=== PATIENT | male | born 1940 ===

== ENCOUNTER 2024-09-17 09:45 | Outpatient (RCR) | payer MEDICARE, SELFPAY | END 2025-01-01 08:18 | disposition home or self-care (01) | LOC: PT 09:45 | PROVIDERS: PCP Internal Medicine; Visit Provider Internal Medicine | DX: G20.A1 Parkinson's disease without dyskinesia, without mention of fluctuations (principal); Z91.81 History of falling; M54.6 Pain in thoracic spine; M54.50 Low back pain, unspecified | CPT/HCPCS: 97035; 97110; 97140; 97162; 97530 ==

== ENCOUNTER 2024-09-25 08:54 | Outpatient (RCR) | payer MEDICARE, SELFPAY | END 2025-01-01 08:19 | disposition home or self-care (01) | LOC: OT 08:54 | PROVIDERS: PCP Internal Medicine; Visit Provider Internal Medicine | DX: G20.A1 Parkinson's disease without dyskinesia, without mention of fluctuations (principal); Z91.81 History of falling; M54.6 Pain in thoracic spine; M54.50 Low back pain, unspecified | CPT/HCPCS: 97035; 97110; 97140; 97166; 97530 ==